=== PATIENT | male | born 1970 | race Asian ===

== ENCOUNTER 2017-12-25 19:36 | Emergency (ER) | payer OTHER ==
[~2017-12-25] VITALS: Ht 175.3 cm; Wt 92.5 kg
[~2017-12-25 19:36] MED LIST: FLEXERIL10 MG PO; MEDROL DOSEPAK1 PAC PO; NAPROSYN 500 M500 MG PO
[2017-12-25 20:13] LABS: ABSOLUTE BASOPHIL COUNT 0 /CUMM (0.0-0.2); ABSOLUTE EOSINOPHIL COUNT 0.2 /CUMM (0.0-0.7); ABSOLUTE GRANULOCYTE CT 4.7 /CUMM (1.4-6.5); ABSOLUTE MONOCYTE COUNT 0.7 /CUMM (0.10-0.60); BASOPHIL % 0.5 % (0.0-2.0); EOSINOPHIL % 1.6 % (0-5); GRANULOCYTE % 48.9 % (42.2-75.2); HEMATOCRIT 42.7 % (42-52); MEAN CORPUSCULAR HGB 30.2 PG (27.0-31.0); MEAN CORPUSCULAR HGB CONC 33.3 G/DL (33.0-37.0); MEAN CORPUSCULAR VOLUME 90.7 FL (80.0-94.0); MEAN PLATELET VOLUME 8.9 FL (7.4-10.4); PLATELET COUNT 264 /CUMM (130-400); RED BLOOD CELL CT 4.71 /CUMM (4.70-6.10); WHITE BLOOD CELL COUNT 9.6 /CUMM (4.8-10.8)
--- NOTE | 2017-12-25 20:42 | RADIOLOGY REPORT ---
EXAMINATION: XR CHEST CLINICAL INFORMATION: Back pain COMPARISON: None TECHNIQUE: 2 views of the chest were obtained. FINDINGS: The heart size is within normal limits. The hilar structures do not appear enlarged. There is no effusion. There is no infiltrate. Some early degeneration thoracic spine on the lateral film. Most noted in the mid thoracic region. No convincing evidence for an acute compression injury. Mildly tortuous versus ectatic aortic arch and descending aorta. IMPRESSION: Heart size is normal. The aortic arch and descending aorta appear tortuous versus ectatic. Aneurysmal change needs to be considered. Some early degenerative change in the mid thoracic spine. The heart size is, over normal. The lung soares are clear
--- NOTE | 2017-12-25 21:26 | ED GENERAL ADULT ---
History of Present Illness General Chief Complaint: Chest Pain Stated Complaint: SENT BY WALK IN FOR CHEST PAIN Source: patient Exam Limitations: no limitations Vital Signs & Intake/Output Vital Signs & Intake/Output Vital Signs Date Time Temp Pulse Resp B/P B/P Pulse O2 O2 Flow FiO2 Mean Ox Delivery Rate 12/25 2101 97.0 78 18 106/68 100 Room Air 12/25 1942 97.2 88 18 134/90 99 Room Air ED Intake and Output 12/26 0000 12/25 1200 Intake Total Output Total Balance Patient 204 lb Weight Allergies Uncoded Allergies: Allergy Other NONE Med Allergies NONE Reconcile Medications CYCLOBENZAPRINE HCL (Flexeril) 10 MG TAB 1 TAB PO TID PRN SPASM Avoid operating motor vehicle or heavy machinery Methylprednisolone. (Medrol) 1 PAC PAC 1 PAC PO DAILY INFLAMMATION USE DIRECTED Naproxen (Naprosyn) 500 MG TAB 1 TAB PO BID PRN PAIN Triage Note: PT STATES THAT 3 HOURS AGO HE WAS HAVING A FIGHT ON THE PHONE WITH SOMEONE WHEN HE HAD SUDDEN ONSET OF R UPPER BACK PAIN , SHARP IN NATURE AND STATES THAT IT TOOK HIS BREATH AWAY, STATES THAT HE LAID DOWN ON FLOOR AND SISTER WALKED ON HIS BACK AND IT FELT BETTER, PT WENT TO WALK IN AND THEY TOLD HIM TO COME TO ER. PT STATES THAT PAIN IS MUCH BETTER AT THIS TIME Triage Nurses Notes Reviewed? yes Onset: Abrupt Duration: hour(s): (3), better, gone now Timing: single episode today Injury Environment: home Severity: mild, moderate Severity Numbers: 6 No Modifying Factors: none Modifying Factors: Worsens With: movement. Associated Symptoms: back pain HPI: 47 YEAR OLD MALE HX OF HTN PRESENTS FOR EVAL OF BACK PAIN IN THE RT UPPER BACK. PAIN STARTED ABOUT 3 HOURS BEFORE PRESENTATION WHILE HE WAS ARGUING ON THE PHONE. THE PAIN IS LOCATED IN PABLO AREA OF THE RT SCAPULA AND DECREIBED SHARP. NO CHEST PAIN OR SOB. IT IS WORSE WITH MOVEMENT. SINCE IT FIRST STARTED THE PAIN HAS IMPROVEED SIGNIFICANLTY WITHOUT TREATMENT. CURRENLTY IS A 1/10. PAIN WORSE WITH MOVEMENT. NO DVT/PE RISK FACTORS. HE WAS SEEN AT AN URGENT CARE and sent here to rule out pe. NO OTHER ASSOCIATED SYMPTOMS. PT RPEORTS THAT THE PAIN WENT AWAY AFTER HE LAID ON PABLO GORUND AND HS WALKED ON HIS BACK. (Jae Valentine) Past History Travel History Traveled to [place] past 21 day No Medical History Any Pertinent Medical History? 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 No (Jae Valentine) Review of Systems Review of Systems Constitutional: Reports: no symptoms. EENTM: Reports: no symptoms. Respiratory: Reports: no symptoms. Cardiovascular: Reports: no symptoms. GI: Reports: no symptoms. Genitourinary: Reports: no symptoms. Musculoskeletal: Reports: back pain. Skin: Reports: no symptoms. Neurological/Psychological: Reports: no symptoms. Hematologic/Endocrine: Reports: no symptoms. Immunologic/Allergic: Reports: no symptoms. All Other Systems: Reviewed and Negative (Jae Valentine) Physical Exam Physical Exam General Appearance: well developed/nourished, no apparent distress, alert, awake Head: atraumatic, normal appearance Eyes: Bilateral: normal appearance, PERRL, EOMI. Ears, Nose, Throat: normal pharynx, normal ENT inspection, hearing grossly normal Neck: normal inspection, supple, full range of motion Respiratory: normal breath sounds, chest non-tender, no respiratory distress, lungs clear Cardiovascular: regular rate/rhythm, normal peripheral pulses Peripheral Pulses: 2+ radial (R), 2+ radial (L) Gastrointestinal: soft, non-tender Back: normal inspection, normal range of motion, no vertebral tenderness Extremities: normal inspection, normal capillary refill, normal range of motion, no edema Neurologic/Psych: no motor/sensory deficits, awake, alert, oriented x 3, normal gait Skin: intact, normal color, warm/dry Lymphatic: no anterior cervical oscar Core Measures ACS in differential dx? No CVA/TIA Diagnosis: No Sepsis Present: No Sepsis Focused Exam Completed? No (Jae Valentine) Progress Differential Diagnoses I considered the following diagnoses in my evaluation of the patient: [MSK PAIN, ACS, PE, DISECTION, PNA, ROTATOR CUFF INJURY] Plan of Care: Orders Procedure Date/time Status CTA CHEST-AORTIC DISSECTION 12/[address] ABD & PELVIS ANGIOGRAM 12/26 2107 Active TROPONIN LEVEL 12/25 1942 Complete D-DIMER 12/25 1942 Complete COMPREHENSIVE METABOLIC PANEL 12/25 1942 Complete CBC WITHOUT DIFFERENTIAL 12/25 1942 Complete EKG 12/25 1936 Active Laboratory Tests 12/25/171954: Anion Gap 12, Estimated GFR > 60, BUN/Creatinine Ratio 17.3, Glucose 90, Calcium 9.3, Total Bilirubin 0.6, AST 21, ALT 39, Alkaline Phosphatase 58, Troponin I < 0.01, Total Protein 7.4, Albumin 4.2, Globulin 3.2, Albumin/Globulin Ratio 1.3, D-Dimer High Sensitivty < 200, CBC w Diff NO MAN DIFF REQ, RBC 4.71, MCV 90.7, MCH 30.2, MCHC 33.3, RDW 14.0, MPV 8.9, Gran % 48.9, Lymphocytes % 41.5, Monocytes % 7.5, Eosinophils % 1.6, Basophils % 0.5, Absolute Granulocytes 4.7, Absolute Lymphocytes 4.0 H, Absolute Monocytes 0.7 H, Absolute Eosinophils 0.2 , Absolute Basophils 0 PT SEEN AND EVALUATED. HE NEVER HAD CHEST PAIN OR SOB. PAION IS ONLY 1/10 VERY MILD NOW. ALL BLOOD WORK IS WNL. EKG IS STABLE. CHEST X-RAY SHOWED A TORTUOUS AORTA THAT MAY REPRESENT ANYURYSM. A CTA WAS ORDERED. PT DECLINES PAIN MEDS DISCUSSED WITH PT ABOUT GETTING A SECOND SET OF EKG/TROPONIN BUT PT DOES NOT WANT TO WAIT FOR THIS. HE UNDERSTANDS THE RISKS. HE NEVER HAD CHEST PAIN OR SOB AND IS LOW RISK. PT SIGNED OUT TO DR GODINEZ PENDING CTA. Diagnostic Imaging: Viewed by Me: Radiology Read, CT Scan. Discussed w/RAD: Radiology Read, CT Scan. CXR Impression: PATIENT: VISHNU ARREOLA PRESENT AGE: 47 PATIENT ACCOUNT NO: [id number] : 71 LOCATION: [facility] ORDERING PHYSICIAN: Kendrick DICKEY SERVICE DATE: 12/25/17 EXAM TYPE: RAD - XRY-CHEST XRAY, TWO VIEWS EXAMINATION: XR CHEST CLINICAL INFORMATION: Back pain COMPARISON : None TECHNIQUE: 2 views of the chest were obtained. FINDINGS: The heart size is within normal limits. The hilar structures do not appear enlarged. There is no effusion. There is no infiltrate. Some early degeneration thoracic spine on the lateral film. Most noted in the mid thoracic region. No convincing evidence for an acute compression injury. Mildly tortuous versus ectatic aortic arch and descending aorta. IMPRESSION: Heart size is normal. The aortic arch and descending aorta appear tortuous versus ectatic. Aneurysmal change needs to be considered. Some early degenerative change in the mid thoracic spine. The heart size is, over normal. The lung soares are clear DICTATED BY: Alexis Bonilla MD DATE/TIME DICTATED:12/25/172036 HAND SALTER:RHEA DATE/TIME TRANSCRIBED:12/25/172036 CONFIDENTIAL, DO NOT COPY WITHOUT APPROPRIATE AUTHORIZATION. <Electronically signed in Other Vendor System> SIGNED BY: Alexis Bonilla MD 12/25/172041 Initial ED EKG: normal sinus rhythm, no ST T wave changes Hand-Off Endorsed To: Alexis Godinez MD Endorsed Time: 5094 Pending: CT (Jae Valentine) Comments: 12/26/2017 12:18:42 AM I have updated Vishnu on his test results. He confirms that he has had an abdominal trauma in the past (the radiologist commented on changes in the spleen). Vishnu appears comfortable good-natured and in no significant distress. He states he has been taking Advil with improvement for his right periscapular pain. (Alexis Godinez MD) Departure Departure Disposition: HOME OR SELF CARE Condition: Stable Clinical Impression Primary Impression: Thoracic back pain Qualifiers: Chronicity: acute Back pain laterality: right Qualified Code: M54.6 - Pain in thoracic spine Referrals: Angelo DANG,Isiah Boston (PCP/Family) Departure Forms: Customer Survey General Discharge Information (Jae Valentine) Departure Additional Instructions: FOLLOW UP WITH YOUR PCP THIS WEEK. Advil 600 mg every 6 hours as needed FOR PAIN. Avoid heavy lifting or other exertion. Return if any concerns or sudden worsening. Please note that there might be incidental findings in your evaluation that are unrelated to the current emergency department visit. Please notify your primary care doctor about this emergency department visit in order to obtain and review all of the testing performed so that these incidental findings can be monitored as needed. If you had an x-ray performed, please understand that some fractures may not be seen on the initial set of x-rays. If your symptoms persist you might need a repeat set of x-rays to check for such a fracture. If you had a laceration evaluated, please understand that foreign bodies such as glass or wood may not be visible to the naked eye or on plain x-rays. If the wound becomes red, swollen, increasingly more painful or if there is any drainage from the wound, please have it reevaluated by a physician for the possibility of a retained foreign body. If you're unable to follow up as outlined in the discharge instructions please return to the emergency department. Thank you for choosing the [facility] Emergency Department for your care. It was a pleasure to serve you today. Alexis Godinez M.D. [facility] (Gretchen DANG,Alexis Cisneros) Critical Care Note Critical Care Note Critical Care Time: non-applicable (Jae Valentine)
--- NOTE | 2017-12-26 00:19 | CT SCAN REPORT ---
EXAMINATION: CT ANGIOGRAM CHEST, ABDOMEN AND PELVIS CLINICAL INFORMATION: Thoracic and lumbar back pain COMPARISON: Chest x-ray December 25, 2017 TECHNIQUE: Noncontrast axial images obtained through the chest. Multiple axial images were obtained through the chest abdomen and pelvis following the administration of 95 mL of Optiray 320 intravenous contrast. Coronal and sagittal reformatted images performed at CT scanner. No 3-D imaging. DLP: 1728.64 mGy-cm. FINDINGS: VASCULAR: The thoracic aorta is normal. There is no dissection. There is no aneurysm. There is mild atherosclerotic vascular wall calcifications of the abdominal aorta. There is normal enhancement of the major branch vessels at the thoracic aortic arch as well as in the abdomen and pelvis. The pulmonary arteries are partially opacified. The study was performed with timing for enhancement of the aorta. No evidence of central pulmonary embolism. CT CHEST: MEDIASTINUM: No mediastinal mass. No significant lymphadenopathy. There is no pericardial effusion. LUNGS: The lungs are clear. No nodule or infiltrate. Central bronchial airways open. FLUID: There is no pericardial effusion. There is no pleural effusion. AXILLA: No significant lymphadenopathy. CT SCAN ABDOMEN PELVIS: LIVER, GALLBLADDER, AND BILIARY TREE: The liver is normal in size, shape, and attenuation. No focal hepatic lesion or biliary ductal dilatation is present. The gallbladder is unremarkable with no evidence of radiopaque gallstones, gallbladder wall thickening, or obvious pericholecystic inflammatory changes. PANCREAS: Unremarkable. SPLEEN: Spleen is small in size measuring 4.5 cm.. ADRENAL GLANDS: Unremarkable. KIDNEYS AND URETERS: The right kidney is normal in size and contour with normal enhancement of the cortex. No renal or ureteral calculi or hydronephrosis. Left kidney is atrophic. The kidney measures 5.3 cm superior inferior. There is a cyst at the lower pole the left kidney measuring 4.4 cm. There is a 5 mm calcification the cortex at the lower pole the left kidney. There is no dilatation of the ureter. No ureteral stone. BLADDER: Unremarkable. GASTROINTESTINAL TRACT: The small and large bowel are unremarkable. The appendix is unremarkable. Mesentery: There are numerous masses in the mesentery that are enhancing. The largest single mass measures 4 x 2.8 x 1.5 cm, axial image 73 (6). There are additional scattered smaller mesenteric nodules measuring about 1 to 3 cm. These enhance to about the same intensity as the spleen. Question if this is disseminated splenic implants, splenules, since the spleen is small in size. This is could be related to old prior splenic injury, correlate clinically. There is no ascites. ABDOMINAL WALL: There is a fat-containing 2.8 cm hernia in the left inguinal region. LYMPH NODES: No significant retroperitoneal lymph nodes. There are small subcentimeter lymph nodes in the groin. PELVIC VISCERA: Unremarkable. OSSEOUS STRUCTURES: Mild degenerative change of the spine with small endplate spurs of lower thoracic and lower lumbar vertebrae. Vacuum disc phenomenon L4-L5 disc. IMPRESSION: 1. Normal thoracic and abdominal aorta. 2. The spleen is small in size. 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 3. Small atrophic left kidney with coarse cortical calcification and renal cyst at the lower pole. This critical result was discussed with Dr. Godinez on 12/27/2011, 12:05 AM and it was ascertained that the content and urgency of the report was understood at the time of direct communication.
[2017-12-26 00:23] VITALS: BP 110/68
== END 2017-12-26 00:23 ==
LOC: ERH 19:36
PROVIDERS: Physician Assistant Medical
DX: M54.6 Pain in thoracic spine (principal)
CPT/HCPCS: 71046; 74174; 93005; 93010